=== PATIENT | male | born 1960 | race Caucasian/White ===

== ENCOUNTER → 2017-11-01 | Outpatient (CLI) | payer BC | END | disposition home or self-care (01) | LOC: HKI 08:53 | DX: M16.11 Unilateral primary osteoarthritis, right hip (principal); Z88.0 Allergy status to penicillin | CPT/HCPCS: G0463 ==

== ENCOUNTER → 2017-11-29 | Outpatient (CLI) | payer BC | END | disposition home or self-care (01) | LOC: HKI 10:27 | DX: Z01.818 Encounter for other preprocedural examination (principal); M16.11 Unilateral primary osteoarthritis, right hip | CPT/HCPCS: G0463 ==

== ENCOUNTER 2017-12-02 06:42 | Inpatient (IN) | payer BC ==
[2017-12-02] MEDS ORDERED: ROCURONIUM 50 MG INJ ×2 (07:00→08:09)
[2017-12-02] MEDS: LACTATED RINGER'S 1,000 ML IV ×3 (07:30→23:30)
[2017-12-02] MEDS: ONDANSETRON 4 MG INJ IV ×3 (08:04→14:24)
[2017-12-02] MEDS: DEXAMETHASONE 4 MG/ML 1 ML INJ IV (08:06)
[2017-12-02] MEDS: LANSOPRAZOLE 30 MG CAP PO (08:07)
[2017-12-02] MEDS: ACETAMINOPHEN 1000MG/100ML IV 100 ML IVPB (08:07)
[2017-12-02] MEDS ORDERED: MIDAZOLAM 1 MG/ML 2 ML INJ (08:09)
[2017-12-02] MEDS ORDERED: ONDANSETRON 4 MG INJ (08:09)
[2017-12-02] MEDS ORDERED: NEOSTIGMINE 3 MG/3 ML SYRINGE (08:09)
[2017-12-02] MEDS ORDERED: GLYCOPYRROLATE 0.4 MG INJ (08:09)
[2017-12-02] MEDS ORDERED: CEFAZOLIN 1 GM INJ (08:09)
[2017-12-02] MEDS ORDERED: FENTAnyl 50 MCG/ML VIAL (08:09)
[2017-12-02] MEDS ORDERED: DEXAMETHASONE 4 MG/ML 1 ML INJ (08:09)
[2017-12-02] MEDS ORDERED: PROPOFOL 20 ML (08:09)
[2017-12-02] MEDS ORDERED: BUPIVACAINE 0.75%/DEXT (SPINAL) 2 ML INJ (08:13)
[2017-12-02] MEDS ORDERED: morphine SULFATE/PF (10 MG/10 ML) INJ (08:13)
[2017-12-02] MEDS ORDERED: PROPOFOL 100 ML (08:13)
[2017-12-02] MEDS ORDERED: NALOXONE (0.4 MG/ML) INJ IV ×2 (08:30→10:00)
[2017-12-02] MEDS ORDERED: NACL 0.9% 3 ML SYG IV (08:30)
[2017-12-02] MEDS ORDERED: BETHANECHOL 25 MG TAB PO (08:30)
[2017-12-02] MEDS ORDERED: DIPHENHYDRAMINE 50 MG INJ IV ×2 (08:30→10:00)
[2017-12-02] MEDS ORDERED: BISACODYL 10 MG SUPP PR (08:30)
[2017-12-02] MEDS ORDERED: NA PHOSPHATE/BIPHOS 133 ML ENEMA PR (08:30)
[2017-12-02] MEDS ORDERED: MAGNESIUM HYDROXIDE 30ML CUP PO (08:30)
[2017-12-02] MEDS ORDERED: SENNA/DOCUSATE NA (8.6MG/50MG) TAB PO (08:30)
[2017-12-02] MEDS ORDERED: oxyCODONE 5 MG TAB PO ×3 (08:30)
[2017-12-02] MEDS ORDERED: EPINEPHrine 1 MG INJ (08:58)
[2017-12-02] MEDS: CLINDAMYCIN 900 MG/D5W (PMX) 50 ML IVPB (09:11)
[2017-12-02] MEDS: TRANEXAMIC ACID 1,000 MG in D5W 100 ML AT CLOSURE X1 IVPB (09:15)
[2017-12-02] MEDS: TRANEXAMIC ACID 1,000 MG in D5W 100 ML AT INCISION X1 IVPB (09:15)
[2017-12-02] MEDS ORDERED: PHENYLephrine (100 MCG/ML) 5ML SYG (09:17)
[2017-12-02] MEDS: POLYMYXIN B 500000 UNIT INJ (09:55)
[2017-12-02] MEDS: BACITRACIN 50000 UNITS INJ (09:55)
[2017-12-02] MEDS ORDERED: OXYCODONE/ACETAMINOPHEN (5/325) TAB PO ×2 (10:00)
[2017-12-02] MEDS ORDERED: HYDROmorphONE 1 MG/5 ML IV SYRINGE IV ×3 (10:00)
[2017-12-02] MEDS ORDERED: LABETALOL HCL 20MG INJ IV (10:00)
[2017-12-02] MEDS ORDERED: EPHEDrine SULFATE 50 MG/5 ML SYG IV (10:00)
[2017-12-02] MEDS ORDERED: TRIMETHOBENZAMIDE 100 MG/ML VIAL IM (10:00)
[2017-12-02] MEDS ORDERED: FENTAnyl 50 MCG/ML VIAL IV ×3 (10:00)
[2017-12-02] MEDS ORDERED: ONDANSETRON 4 MG INJ IV (10:00)
[2017-12-02] MEDS ORDERED: MEPERIDINE 25 MG INJ IV (10:00)
[2017-12-02] MEDS ORDERED: ALBUTEROL 0.083% (NEB) 2.5 MG/3 ML AMP HHN (10:00)
[2017-12-02] MEDS ORDERED: IPRATROPIUM (NEB) 0.5 MG/2.5 ML AMP HHN (10:00)
[2017-12-02] MEDS ORDERED: MIDAZOLAM 1 MG/ML 2 ML INJ IV (10:00)
[2017-12-02] MEDS ORDERED: hydrALAzine 20 MG INJ IV (10:00)
[2017-12-02] MEDS ORDERED: ALBUMIN HUMAN 5% 250 ML (10:19)
[2017-12-02] MEDS ORDERED: SUGAMMADEX SODIUM 200 MG/2 ML VIAL IV (10:37)
[2017-12-02] MEDS ORDERED: METOCLOPRAMIDE 10 MG INJ (10:44)
[2017-12-02] MEDS: ASPIRIN (EC) 325 MG TAB PO (11:18)
[2017-12-02] MEDS: DOCUSATE SODIUM 100 MG CAP PO (11:18)
[2017-12-02] MEDS: SOD CHLORIDE 0.9% 1,000 ML IV ×2 (13:51→16:29)
[2017-12-02 15:51] LABS: VANCOMYCIN,TROUGH < 5.0 ug/ml (10.0-20.0)
[2017-12-02] MEDS ORDERED: METOCLOPRAMIDE 10 MG INJ IV (16:30)
[2017-12-02] MEDS: VANCOMYCIN 1 GM (PMX) 250 ML IVPB (17:51)
[2017-12-02] MEDS: GABAPENTIN 100 MG CAP PO (21:19)
[2017-12-03] MEDS: ACETAMINOPHEN 325 MG TAB PO (02:44)
[2017-12-03 05:35] LABS: ADD MAN DIFF? NO
[2017-12-03 05:42] LABS: WHITE BLOOD COUNT 10.5 10^3/ul (4.8-10.8)
[2017-12-03 05:42] LABS: BASOPHILS % 0.1 % (0.0-2.0); HEMATOCRIT 33.7 % (42.0-52.0); LYMPHOCYTES # 0.8 10^3/ul (0.8-2.9); MEAN CORPUSCULAR HEMOGLOBIN 26.1 pg (29.0-33.0); MEAN CORPUSCULAR HGB CONC 32.6 g/dl (32.0-37.0); MEAN PLATELET VOLUME 9.3 fl (7.4-10.4); MONOCYTE # 0.8 10^3/ul (0.3-0.9); MONOCYTES % 7.2 % (0.0-11.0); NEUTROPHIL # 8.8 10^3/ul (1.6-7.5); PLATELET COUNT 185 10^3/UL (140-415); RED BLOOD COUNT 4.21 10^6/ul (4.70-6.10); RED CELL DISTRIBUTION WIDTH 14.4 % (11.5-14.5)
[2017-12-03] MEDS: PANTOPRAZOLE (EC) 40 MG TAB PO (06:04)
[2017-12-03] MEDS: VANCOMYCIN 1 GM (PMX) 250 ML IVPB (06:05)
[2017-12-03 06:20] LABS: ANION GAP 11 (8-16); BLOOD UREA NITROGEN 15 mg/dl (7-20); CALCIUM 8.8 mg/dl (8.4-10.2); CARBON DIOXIDE 24 mmol/L (21-31); CHLORIDE 108 mmol/L (97-110); CREATININE 0.77 mg/dl (0.61-1.24); GLUCOSE 147 mg/dl (70-220); POTASSIUM 4.4 mmol/L (3.5-5.1); SODIUM 139 mmol/L (135-144)
[2017-12-03] MEDS: LACTATED RINGER'S 1,000 ML IV (07:30)
[2017-12-03] MEDS: DOCUSATE SODIUM 100 MG CAP PO (08:54)
[2017-12-03] MEDS: GABAPENTIN 100 MG CAP PO (08:54)
[2017-12-03] MEDS: ASPIRIN (EC) 325 MG TAB PO (08:55)
[2017-12-03] MEDS: FERROUS FUMARATE (SR) TAB PO (08:55)
[2017-12-03] MEDS: traMADol 50 MG TAB PO (08:57)
[2017-12-03] MEDS ORDERED: CELECOXIB 200 MG CAP PO (09:00)
[2017-12-03] MEDS: SOD CHLORIDE 0.9% 1,000 ML IV (09:27)
[2017-12-03] MEDS ORDERED: HYDROCODONE/APAP (5/325) TAB PO (09:30)
[2017-12-03 10:08] LABS: ADD UMIC YES; UR ASCORBIC ACID NEGATIVE (NEGATIVE); UR BILIRUBIN (Dip) NEGATIVE (NEGATIVE); UR BLOOD (Dip) 1+ mg/dL (NEGATIVE); UR CLARITY CLEAR (CLEAR); UR COLOR YELLOW (YELLOW); UR GLUCOSE (Dip) NEGATIVE (NEGATIVE); UR KETONES (Dip) NEGATIVE (NEGATIVE); UR LEUKOCYTE ESTERASE (Dip) NEGATIVE Leu/ul (NEGATIVE); UR NITRITE (Dip) NEGATIVE (NEGATIVE); UR RBC 5 /HPF (0-5); UR SPECIFIC GRAVITY (Dip) 1.017 (1.003-1.030); UR TOTAL PROTEIN (Dip) NEGATIVE (NEGATIVE); UR UROBILINOGEN (Dip) NEGATIVE (NEGATIVE); UR WBC 1 /HPF (0-5)
[2017-12-03] MEDS: HYDROCODONE/APAP (10/325) TAB PO (11:29)
[2017-12-03] MEDS: CELECOXIB 100 MG CAP PO (11:46)
== END 2017-12-03 15:20 | disposition home health service (06) | DRG 470 ==
LOC: REC 06:42 → MS1 12:21
PROVIDERS: Orthopaedic Surgery
PROC: 0SR904A Replacement of Right Hip Joint with Ceramic on Polyethylene Synthetic Substitute, Uncemented, Open Approach (ICD-10-PCS; principal; 2017-12-02 08:56)
DX: M16.11 Unilateral primary osteoarthritis, right hip (principal)
CPT/HCPCS: 73530; 80048; 80202; 81001; 85025; 86850; 86900; 86901; 87081; 87086; 97110; 97116; 97161; 97165; 97530

== ENCOUNTER → 2017-12-13 | Outpatient (CLI) | payer BC | END | disposition home or self-care (01) | LOC: HKI 10:56 | DX: Z09 Encounter for follow-up examination after completed treatment for conditions other than malignant neoplasm (principal); Z96.641 Presence of right artificial hip joint | CPT/HCPCS: 73502 ==

== ENCOUNTER → 2018-01-10 | Outpatient (CLI) | payer BC | END | disposition home or self-care (01) | LOC: HKI 11:17 | DX: Z47.1 Aftercare following joint replacement surgery (principal); Z96.641 Presence of right artificial hip joint | CPT/HCPCS: 73502 ==